=== PATIENT | male | born 1980 | race Caucasian/White ===

== ENCOUNTER 2020-03-29 15:30 | Emergency (ER) | payer OTHER ==
[2020-03-29] MEDS ORDERED: Aluminum Hydroxide/Magnesium Hydroxide/Simethicone Susp 30 ML Cup PO ONE (16:04)
[2020-03-29] MEDS ORDERED: Acetaminophen 500 MG Tab PO ONE (16:04)
--- NOTE | 2020-03-29 16:10 | EDM.PDOC ---
ED HPI GENERAL MEDICAL PROBLEM - General Chief Complaint: Chest Pain Stated Complaint: [facility] Time Seen by Provider: 03/29/20 15:50 Source of Information: Reports: Patient, EMS, Old Records, RN History Limitations: Reports: No Limitations - History of Present Illness INITIAL COMMENTS - FREE TEXT/NARRATIVE: 39 yo male with no CAD hx was sent from his work to the ER today via EMS for mild chest tightness. At one point he apparently was doing some mild hyperventilation as he felt extremity tingling and light-headedness. He denies nausea, diaphoresis or SOB. He is not sure but thinks activity might make it a little worse. No hx of the same. Does smoke < 1/2 ppd. Was exposed to a coworker who went home from work ill a couple days ago. He does not know what that worker's sx's or diagnosis was. Got ASA per EMS en route. All the tingling sx's are gone on arrival. Has GERD, this feels different. Has a mild cough, non- productive. No calf pain or LE edema. Onset: Today Onset Date: 03/29/20 Duration: Hour(s):, Constant Location: Reports: Chest Quality: Reports: Other (tight) Severity: Mild Improves with: Reports: None Worsens with: Reports: Other (? exertion, not for sure.) Context: Reports: Other (See HPI) Associated Symptoms: Reports: Chest Pain, Cough. 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 Chest Pain Score (Numeric/FACES): 2 - Related Data Allergies Allergy/AdvReac Type Severity Reaction Status Date / Time bee venom protein (honey bee) Allergy Hives Verified 03/29/20 15:37 Home Meds: Home Meds Citalopram [Citalopram HBr] 40 mg PO DAILY 03/29/20 [History] Omeprazole 20 mg PO ASDIRECTED 03/29/20 [History] Past Medical History Gastrointestinal History: Reports: GERD Musculoskeletal History: Reports: Fracture, Other (See Below) Other Musculoskeletal History: nose Psychiatric History: Reports: Depression - Past Surgical History HEENT Surgical History: Reports: Other (See Below) Other HEENT Surgeries/Procedures: "reset nose to put it in place". Social & Family History - Tobacco Use Smoking Status *Q: Heavy Tobacco Smoker Years of Tobacco use: 15 Packs/Tins Daily: 1 - Caffeine Use Caffeine Use: Reports: Soda - Recreational Drug Use Recreational Drug Use: No ED ROS GENERAL - Review of Systems Review Of Systems: See Below Constitutional: Reports: No Symptoms HEENT: Reports: No Symptoms Respiratory: Reports: Cough. Denies: Shortness of Breath, Wheezing, Pleuritic Chest Pain, Sputum, Hemoptysis Cardiovascular: Reports: Chest Pain (tight substernally), Lightheadedness (now better) Endocrine: Reports: No Symptoms GI/Abdominal: Reports: No Symptoms : Reports: No Symptoms Musculoskeletal: Reports: No Symptoms Skin: Reports: No Symptoms Neurological: Reports: Tingling (of extremities earlier) ED EXAM, GENERAL - Physical Exam Exam: See Below Exam Limited By: No Limitations General Appearance: Alert, WD/WN, No Apparent Distress Eye Exam: Bilateral Eye: Normal Inspection Ears: Normal External Exam, Normal Canal, Hearing Grossly Normal Ear Exam: Bilateral Ear: Auricle Normal, Canal Normal Nose: Normal Inspection, No Blood Throat/Mouth: Normal Inspection, Normal Lips, Normal Oropharynx, Normal Voice, No Airway Compromise Head: Atraumatic, Normocephalic Neck: Normal Inspection Respiratory/Chest: No Respiratory Distress, Lungs Clear, Normal Breath Sounds, No Accessory Muscle Use, Chest Non-Tender Cardiovascular: Regular Rate, Rhythm, No Edema GI/Abdominal: Normal Bowel Sounds, Soft Back Exam: Normal Inspection. No: CVA Tenderness (R), CVA Tenderness (L) Extremities: Normal Inspection, Normal Range of Motion, Non-Tender, No Pedal Edema. No: Pedal Edema Neurological: Alert, Oriented, CN II-XII Intact, Normal Cognition, No Motor/ Sensory Deficits Psychiatric: Normal Affect, Normal Mood Skin Exam: Warm, Dry, Intact, Normal Color, No Rash EKG INTERPRETATION EKG Date: 03/29/20 Time: 15:05 Rhythm: NSR Rate (Beats/Min): 65 Ceres: Normal P-Wave: Present QRS: Normal ST-T: Normal QT: Normal Comparison: NA - No Prior EKG Course - Vital Signs Last Recorded V/S: Last Vital Signs Temp 36.3 C 03/29/20 15:38 Pulse 57 L 03/29/20 16:54 Resp 10 L 03/29/20 16:54 BP 119/72 03/29/20 16:54 Pulse Ox 98 03/29/20 16:54 - Orders/Labs/Meds Labs: Laboratory Tests 03/29/20 03/29/20 Range/Units 15:53 16:04 WBC 7.9 (4.5-11.0) K/uL RBC 4.90 (4.30-5.90) M/uL Hgb 14.3 (12.0-15.0) g/dL Hct 43.7 (40.0-54.0) % MCV 89 (80-98) fL MCH 29 (27-31) pg MCHC 33 (32-36) % Plt Count 262 (150-400) K/uL Troponin I < 0.017 (0.000-0.056) ng/mL Meds: Medications Discontinued Medications Generic Name Dose Route Start Last Admin Trade Name Freq PRN Reason Stop Dose Admin Acetaminophen 1,000 mg 03/29/20 16:04 03/29/20 16:29 Tylenol Extra Strength PO 03/29/20 16:05 1,000 mg ONETIME ONE Administration Al Hydroxide/Mg Hydroxide 30 ml 03/29/20 16:04 03/29/20 16:29 Mag-Al Plus PO 03/29/20 16:05 30 ml ONETIME ONE Administration - Re-Assessments/Exams Free Text/Narrative Re-Assessment/Exam: 03/29/20 17:09 Slightly better after Tylenol and Maalox Departure - Departure Time of Disposition: 17:09 Disposition: Home, Self-Care 01 Condition: Fair Clinical Impression: Viral syndrome Clinical Impression: (Ruled Out): Viral labyrinthitis syndrome Instructions: Viral Respiratory Infection, [id number] Referrals: PCP,None [Primary Care Provider] - Forms: ED Department Discharge Additional Instructions: Acetaminophen 1000 mg every 6 hrs as needed. Rest. Drink ample fluids. No smoking. Recheck on Friday morning. Return here if a lot worse. Sepsis Event Note - Evaluation Sepsis Screening Result: No Definite Risk - Focused Exam Vital Signs: Vital Signs Temp Pulse Resp BP Pulse Ox 03/29/20 16:54 57 L 10 L 119/72 98 03/29/20 16:31 55 L 10 L 117/77 98 03/29/20 16:05 57 L 9 L 123/69 94 L 03/29/20 15:43 60 10 L 137/72 93 L 03/29/20 15:38 36.3 C 58 L 14 137/98 H 100 03/29/20 15:33 36.3 C 58 L 14 137/98 H 100 Date Exam was Performed: 03/29/20 Time Exam was Performed: 17:09
== END 2020-03-29 17:27 | disposition home or self-care (01) ==
LOC: JP.ED 15:30
DX: B34.9 Viral infection, unspecified (principal); K21.9 Gastro-esophageal reflux disease without esophagitis; F32.9 Major depressive disorder, single episode, unspecified; Z79.899 Other long term (current) drug therapy; F17.210 Nicotine dependence, cigarettes, uncomplicated; Z91.030 Bee allergy status
CPT/HCPCS: 36415; 84484; 85027; 99285; A9270